=== PATIENT | male | born 1990 ===

== ENCOUNTER 2018-12-30 16:39 | Emergency (ER) | payer OTHER ==
[2018-12-30 17:11] VITALS: BP 137/89; PULSE 71; RESP 17; TEMP 99.3; O2SAT 99
--- NOTE | 2018-12-30 17:18 | C.PDOC ---
History Of Present Illness 28 y/o male presents to the ER complaining of chest discomfort which has been present for the past few days. Patient states that the pain is digitally and positionally reproducible. Patient is also complaining of nasal congestion and sore throat for the past few weeks. Contrary to triage, patient denies having SOB, fever,and chills. Time Seen by Provider: 12/30/18 17:10 Chief Complaint (Nursing): Anxiety History Per: Patient History/Exam Limitations: no limitations Onset/Duration Of Symptoms: Days Current Symptoms Are (Timing): Still Present Severity: Moderate Past Medical History Reviewed: Historical Data, Nursing Documentation, Vital Signs Vital Signs: Last Vital Signs Temp 99.3 F 12/30/18 17:05 Pulse 71 12/30/18 17:05 Resp 17 12/30/18 17:05 BP 137/89 12/30/18 17:05 Pulse Ox 99 12/30/18 17:05 - Medical History PMH: Anxiety Surgical History: No Surg Hx Family History: States: No Known Family Hx - Social History Hx Alcohol Use: No Hx Substance Use: No - Immunization History Hx Tetanus Toxoid Vaccination: No Hx Influenza Vaccination: No Hx Pneumococcal Vaccination: No Review Of Systems Except As Marked, All Systems Reviewed And Found Negative. Constitutional: Negative for: Fever, Chills ENT: Positive for: Nose Congestion, Throat Pain Cardiovascular: Positive for: Chest Pain Respiratory: Negative for: Cough, Shortness of Breath Gastrointestinal: Negative for: Nausea, Vomiting, Abdominal Pain Physical Exam - Physical Exam Appears: Non-toxic Skin: Normal Color, Warm, Dry Head: Atraumatic, Normacephalic Eye(s): bilateral: Normal Inspection Ear(s): Bilateral: Normal Nose: Other (mild to moderate nasal passage erythema, no post nasal drip) Oral Mucosa: Moist Throat: Normal, No Erythema, No Exudate Neck: Supple Chest: Symmetrical, Tenderness (digitally and positionally reproducible tenderness in left 2nd intercostal space mid clavicular line, no rash) Cardiovascular: Rhythm Regular Respiratory: Normal Breath Sounds, No Rales, No Rhonchi, No Wheezing Neurological/Psych: Oriented x3, Normal Speech ED Course And Treatment O2 Sat by Pulse Oximetry: 99 (RA) Pulse Ox Interpretation: Normal Progress Note: Patient treated with Motrin PO. Medical Decision Making Medical Decision Making: digitally reproducable discomfort L parasternal intercostal clear lungs and normal VS's nasal congestion seasonal allergies Disposition Doctor Will See Patient In The: Office Counseled Patient/Family Regarding: Studies Performed, Diagnosis - Disposition Referrals: [facility] [Outside] [facility] [facility] [Outside] [facility] [Outside] [facility] [Outside] Disposition: HOME/ ROUTINE Disposition Time: 17:18 Condition: GOOD Additional Instructions: Costochondritis Ibuprofeno/Advil 400 mg cada 6 horas geena necessario Congestion' nasal Claritin 10 mg diario- ernie an la [place] Flonase Espray Nasal 1 espray cada lado del nariz cada 12 horas Sigue con la [facility] geena necesasrio Instructions: Seasonal Allergies in Adults, Costochondritis (DC) Forms: [employer] (Sing[place]an) Print Language: ZAMBIAN - Clinical Impression Clinical Impression: Chronic nasal congestion, Chest wall discomfort - Scribe Statement The provider has reviewed the documentation as recorded by the Scribe Mariama Stewart Provider Attestation: All medical record entries made by the Scribe were at my direction and personally dictated by me. I have reviewed the chart and agree that the record accurately reflects my personal performance of the history, physical exam, medical decision making, and the department course for this patient. I have also personally directed, reviewed, and agree with the discharge instructions and disposition.
== END 2018-12-30 17:35 | disposition home or self-care (01) ==
LOC: C.ER 16:39
DX: R07.89 Other chest pain (principal); R09.81 Nasal congestion